=== PATIENT | female | born 1980 | race African-American/Black ===

== ENCOUNTER 2016-10-03 07:15 | Day surgery (SDC) | payer OTHER ==
[2016-09-30 17:00] VITALS: BMI 24.7
--- NOTE | 2016-10-03 10:43 | HP ---
History & Physical Update - History History: No Change - Physical Physical: No Change - Assessment Assessment: No Change - Plan Plan: No Change (submucosal leiomyoma, heavy menstrual bleeding for hysteroscopic myomectomy, D&C and IUD insertion)
[2016-10-03] MEDS ORDERED: LACTATED RINGERS SOLUTION 1,000 ML IV SCH (10:45)
[2016-10-03] MEDS ORDERED: ACETAMINOPHEN 325 MG TABLET (FP) PO PRN (10:45)
[2016-10-03] MEDS ORDERED: IBUPROFEN 800 MG/8 ML IJ IVPB PRN (10:45)
[2016-10-03] MEDS ORDERED: LIDOCAINE HCL 2% (20ML MULTI-DOSE VIAL) NR ONE (11:34)
[2016-10-03] MEDS ORDERED: MIDAZOLAM HCL 2 MG/2 ML SINGLE DOSE VIAL ONE (11:34)
[2016-10-03] MEDS ORDERED: PROPOFOL 20 ML ONE (11:34)
[2016-10-03] MEDS ORDERED: DEXAMETHASONE SOD PHOSPHATE 4 MG/1 ML VIAL ONE (11:58)
[2016-10-03] MEDS ORDERED: KETOROLAC TROMETHAMINE 30 MG/1 ML VIAL ONE (12:19)
--- NOTE | 2016-10-03 12:31 | OP ---
Operative Note - Note: Operative Date: 10/03/16 (dictation number [id number]) Pre-Operative Diagnosis: submucosal leiomyoma, heavy menstrual bleeding Operation: hysteroscopic myomectomy, D&C, IUD insertion Findings: large posterior submucosal leiomyoma Implants: Mirena IUD Post-Operative Diagnosis: Same as Pre-op Surgeon: Ayana Banks Anesthesiologist/SCHOOL PHOTOGRAPHS DETAILER: Francoise Miller Anesthesia: General Specimens Removed: portions of leiomyoma Estimated Blood Loss (mls): 25 Drains, Volume Out (mls): 1,200 (saline deficit) Operative Report Dictated: Yes
[2016-10-03] MEDS ORDERED: ONDANSETRON 4 MG/2 ML VIAL IVPUSH PRN (12:37)
[2016-10-03] MEDS ORDERED: oxyCODONE HCL 5 MG TABLET PO PRN (12:37)
[2016-10-03 13:42] VITALS: TEMP 98.9
--- NOTE | 2016-10-03 14:25 | OP ---
DATE OF OPERATION: 10/03/2016 PREOPERATIVE DIAGNOSIS: 1. Submucosal leiomyoma. 2. Heavy menstrual bleeding. POSTOPERATIVE DIAGNOSIS: 1. Submucosal leiomyoma. 2. Heavy menstrual bleeding. PROCEDURE PERFORMED: Hysteroscopy, hysteroscopic resection of posterior uterine myoma and insertion of Mirena intrauterine device. SURGEON: Ayana Banks DO WEAPONS AND TACTICS INSTRUCTOR: None needed. ANESTHESIA: General. ANESTHESIOLOGIST: COMPLICATIONS: None. ESTIMATED BLOOD LOSS: 25 mL. SPECIMENS REMOVED: Included portions of submucosal leiomyoma. FLUID DEFICIT: 1200 mL of normal saline. SPONGE, NEEDLE AND INSTRUMENT COUNTS: Correct at the end of the procedure. DISPOSITION: Stable to PACU. BRIEF HISTORY AND PROCEDURE: The patient is a 36-year-old female who had been seen in the office with complaints of heavy menstrual bleeding and upon ultrasound examination was found to have a large submucosal leiomyoma. The patient desired a Mirena IUD however, due to the size of the fibroid it was discussed with the patient that possible removal of the myoma prior to IUD insertion would be ideal. The patient agreed and consented to the procedure for hysteroscopic resection of fibroid and IUD insertion. The patient was admitted to [facility] on October 03, 2016. Consent for the procedure was confirmed. The patient was taken to the operating room. She was placed in the dorsal lithotomy position and given general anesthesia. Cervix was dilated to accommodate an operative hysteroscope which was placed up to the uterine fundus. A large posterior submucosal leiomyoma was appreciated and resected in several passes with the resectoscope device. Suction D and C was performed to remove all the uterine contents. Another look with the hysteroscope revealed approximately 50% of the myoma still intact. Several more passes with the resectoscope were completed until approximately 1200 mL of fluid deficit was noted. One final suction D and C was performed to remove all the uterine contents. Next, the Mirena IUD was inserted in the usual fashion without difficulty. All instruments were removed from the vagina. The patient was awoken from anesthesia and recovering in stable condition in the PACU at the time of this dictation. AYANA BANKS DO /[id number]
[2016-10-03 15:06] VITALS: BP 115/66; PULSE 55
--- NOTE | 2016-10-04 13:35 | PATH ---
Surgical Pathology Report Patient Name: TAMERA MNUOZ [facility]. Rec. #: [id number] /Age/Gender: 1980 (Age: 36) / F Account: [id number] Location: [facility] SURGICAL Taken: 10/03/2016 Received: 10/03/2016 Reported: 10/04/2016 Physicians: Ayana Banks M.D. Specimen(s) Received SUBMUCOSAL FIBROID Clinical History Endometrial polyp Final Diagnosis UTERUS, HYSTEROSCOPIC MYOMECTOMY: PORTIONS OF MYOMETRIAL TISSUE CONSISTENT WITH FIBROID, ALONG WITH ENDOMETRIUM WITH AREAS SUGGESTIVE OF BENIGN ENDOMETRIAL POLYP AND CLOTTED BLOOD. Electronically Signed Rafa Alcaraz M.D. Gross Description Received in formalin labeled "submucosal fibroid," is a 6 g, 5.0 x 4.0 x 0.7 cm aggregate of multiple chun, irregular, firm to rubbery portions of tissue, consistent with morcellated fibroid. Also received within the same container is a 4.0 x 3.5 x 0.7 cm aggregate of chun-red soft tissue fragments admixed with blood clot. The specimen is entirely submitted in 8 cassettes as follows: 5-5-rqevpydoxls fibroid; 0-8-uebesrgr soft tissue fragments. /10/03/2016 saudi10/03/2016
== END 2016-10-03 15:05 | disposition home or self-care (01) ==
LOC: JASU-SURG 07:15
PROVIDERS: ATTEND Obstetrics & Gynecology
PROC: 0UB98ZZ Excision of Uterus, Via Natural or Artificial Opening Endoscopic (ICD-10-PCS; principal; 2016-10-03 10:30)
PROC: 0UH98HZ Insertion of Contraceptive Device into Uterus, Via Natural or Artificial Opening Endoscopic (ICD-10-PCS; 2016-10-03 10:30)
DX: D25.0 Submucous leiomyoma of uterus (principal); N93.8 Other specified abnormal uterine and vaginal bleeding
CPT/HCPCS: 88305-TC; 94760

== ENCOUNTER 2018-11-24 08:00 | Inpatient (IN) | payer OTHER ==
[2018-11-25 07:32] VITALS: BMI 26.2
[2018-11-26] MEDS ORDERED: IBUPROFEN 800 MG/8 ML IJ IVPB PRN (08:33)
[2018-11-26] MEDS ORDERED: ONDANSETRON 4 MG/2 ML VIAL IVPUSH PRN ×3 (08:33→11:32)
[2018-11-26] MEDS ORDERED: BISACODYL 5 MG TABLET.DR (FP) PO PRN (08:33)
[2018-11-26] MEDS ORDERED: SIMETHICONE 80 MG TAB.CHEW (FP) PO PRN (08:33)
[2018-11-26] MEDS ORDERED: DOCUSATE SODIUM 100 MG CAPSULE (FP) PO PRN (08:33)
--- NOTE | 2018-11-26 08:33 | HP ---
History & Physical Update - History History: No Change - Physical Physical: No Change - Assessment Assessment: No Change - Plan Plan: No Change (No change in HP)
[2018-11-26] MEDS ORDERED: fentaNYL CITRATE 250 MCG/5 ML VIAL ONE (08:44)
[2018-11-26] MEDS ORDERED: MIDAZOLAM HCL 2 MG/2 ML SINGLE DOSE VIAL ONE ×2 (08:44)
[2018-11-26] MEDS ORDERED: PROPOFOL 20 ML ONE (08:44)
[2018-11-26] MEDS ORDERED: ROCURONIUM BROMIDE 50 MG/5 ML SYRINGE ONE (08:44)
[2018-11-26] MEDS ORDERED: LACTATED RINGERS SOLUTION 1,000 ML/1,000 ML INFUS.BAG IV SCH (08:45)
[2018-11-26] MEDS ORDERED: VASOPRESSIN 20 UNITS/ML VIAL IV ONE (08:58)
[2018-11-26] MEDS ORDERED: ceFAZolin SODIUM 1 GM VIAL IVPB ONE (09:20)
[2018-11-26] MEDS ORDERED: ceFAZolin SODIUM 1 GM VIAL ONE ×2 (11:07→17:48)
[2018-11-26] MEDS ORDERED: KETOROLAC TROMETHAMINE 30 MG/1 ML VIAL ONE (11:07)
[2018-11-26] MEDS ORDERED: LIDOCAINE HCL/PF 2% SDV 5ML VIAL ONE (11:07)
[2018-11-26] MEDS ORDERED: DEXAMETHASONE SOD PHOSPHATE 4 MG/1 ML VIAL ONE (11:07)
[2018-11-26] MEDS ORDERED: HYDROmorphone *PCA* 10MG/50ML DISP.SYRIN ONE (11:32)
[2018-11-26] MEDS ORDERED: PROMETHAZINE HCL 25 MG/1 ML VIAL IVPB PRN (11:32)
[2018-11-26] MEDS ORDERED: DEXAMETHASONE SOD PHOSPHATE 4 MG/1 ML VIAL IVPUSH PRN (11:32)
[2018-11-26] MEDS ORDERED: HYDROmorphone *PCA* 10MG/50ML DISP.SYRIN PCA SCH (11:45)
--- NOTE | 2018-11-26 11:53 | OP ---
Operative Note - Note: Operative Date: 11/26/18 Pre-Operative Diagnosis: Embedded intrauterine device, submucosal myoma, leiomyomatous uterus Operation: Open abdominal myomectomy and interuterine device removal abdominally Findings: as dictated Post-Operative Diagnosis: Other (adenomyosis) Surgeon: Seema De León Corn Sheller: Ophelia Lakhani Anesthesiologist/LINING MARKER: Leatha Cole MD Anesthesia: General Specimens Removed: Leiomyoma, IUD Estimated Blood Loss (mls): 50 (ml) Drains, Volume Out (mls): 250 (ML yellow urine) Fluid Volume Replaced (mls): 1,300 (ml LR) Operative Report Dictated: Yes
--- NOTE | 2018-11-26 11:54 | SURG ---
Surgery Enamel Machine Operator Note Enamel Machine Operator: Ophelia Lakhani PA-C (Suzy) Date of Service: 11/26/18 Diagnosis: Embedded intrauterine device, submucosal myoma, leiomyomatous uterus Procedure: Open abdominal myomectomy and interuterine device removal abdominally I was present for the entirety of the operative procedure. For further detail, please refer to operative report. Visit type - Case Type Case Type: Scheduled - Emergency Emergency Visit: No - New patient This patient is new to me today: Yes Date on this admission: 12/01/18 - Critical Care Critical Care patient: No
[2018-11-26] MEDS: LACTATED RINGERS SOLUTION 1,000 ML IV SCH ×2 (13:50→23:19)
--- NOTE | 2018-11-26 15:24 | OP ---
DATE OF OPERATION: 11/26/2018 PREOPERATIVE DIAGNOSIS: Embedded intrauterine device, submucosal myoma, leiomyomatous uterus. POSTOPERATIVE DIAGNOSIS: Adenomyosis. OPERATION: Hysteroscopic lysis of adhesions and abdominal myomectomy and intrauterine device removal abdominally. SURGEON: Alin De León MD TOWER DRAGLINE OPERATOR: CINDA Hicks ANESTHESIA: General. ANESTHESIOLOGIST: Leatha Cole MD FINDINGS: Numerous adhesions in the endometrium. Lysis of adhesions performed. IUD located in the muscle of the uterus. DESCRIPTION OF PROCEDURE: Patient was taken to the operating room, placed in dorsal lithotomy position, prepped and draped in the usual sterile fashion. Timeout was performed in accordance with hospital regulations. Speculum was placed in the vagina, anterior lip of the cervix grasped with single-tooth tenaculum. Cervix was then dilated up to accommodate the operative hysteroscope. Numerous adhesions were seen, and blood. Lysis of adhesions was done. String was seen and attempted to remove the IUD; however, was unable to remove IUD hysteroscopically. Procedure was then aborted hysteroscopically, and attention was then drawn to the abdomen where a Pfannenstiel skin incision was made with a scalpel. Cautery was then used to go through the layers of the abdominal wall to the level of the fascia. Fascia was cut in the midline. Cautery was then used to open the fascia in smiling fashion. Peritoneal cavity was then entered and carried upward and downward. Uterus was exteriorized. A posterior myoma was noted approximately 7 cm in size. Pitressin was infiltrated in the serosa. Cautery was then used to enter the serosa into the muscle. As soon as muscle was entered, IUD was seen coming out of the muscle. IUD was then removed and submitted to pathology. Cautery was then used to go down through layers of the uterus down to the level of the myoma. Submucosal myoma was seen and removed. Endometrial cavity was repaired using 2-0 Vicryl suture and continuous locking suture using 0 Vicryl suture on the muscle layer and V-Loc suture on the serosa. An anterior myoma was noted on the left side. A vertical incision was made and tissue was mostly noted to be adenomyosis. Myoma was then removed and submitted to pathology. Incision was then closed using layers using 0 Vicryl suture in the muscle and V-Loc suture on the serosa. Hemostasis was achieved. Interceed was then placed and sewn in. Uterus interiorized. Packing was removed. Tubes and ovaries noted to be normal. Abdominal sweep done. Peritoneal cavity was closed using 0 Vicryl suture in a continuous fashion. Muscle was approximated in the midline using 0 Vicryl suture. Fascia was then closed using 0 Vicryl suture in 2 parts continuous. Interrupted on the subcutaneous was done using 2-0 Vicryl suture, and skin was then closed using 3-0 Vicryl ALIN DE LEÓN M.D. [id number]
[2018-11-26] MEDS ORDERED: DEXTROSE 5%-WATER - 50 ML IVPB ONE (17:48)
[2018-11-26] MEDS: CEFAZOLIN 1 GM in DEXTROSE 5%-WATER - 50 ML IVPB SCH ×2 (17:54→17:58)
[2018-11-26 20:52] LABS: HEMATOCRIT 22.2 % (32.4-45.2); MCHC 28.8 g/dl (32.0-36.0); MEAN CELL VOLUME 63.6 fl (80-96); MEAN PLT VOLUME 7.5 fl (7.5-11.1); PLATELET COUNT 518 K/MM3 (134-434); RDW 21.7 % (11.6-15.6); WHITE BLOOD COUNT 16.6 K/mm3 (4.0-10.0)
[2018-11-26 20:55] LABS: MCH 18.3 pg (25.7-33.7)
[2018-11-26 20:56] LABS: HEMOGLOBIN 6.4 GM/dL (10.7-15.3)
[2018-11-26 21:08] LABS: CALCIUM 8.1 mg/dL (8.5-10.1); CREATININE 0.5 mg/dL (0.55-1.3)
[2018-11-27] MEDS ORDERED: ceFAZolin SODIUM 1 GM VIAL ONE ×3 (02:29→17:17)
[2018-11-27] MEDS ORDERED: DEXTROSE 5%-WATER - 50 ML IVPB ONE ×3 (02:29→17:17)
[2018-11-27] MEDS: CEFAZOLIN 1 GM in DEXTROSE 5%-WATER - 50 ML IVPB SCH ×3 (02:37→17:58)
[2018-11-27 08:05] LABS: HEMATOCRIT 24.5 % (32.4-45.2); HEMOGLOBIN 7.3 GM/dL (10.7-15.3); MCHC 29.8 g/dl (32.0-36.0); MEAN CELL VOLUME 66.8 fl (80-96); MEAN PLT VOLUME 7.4 fl (7.5-11.1); PLATELET COUNT 438 K/MM3 (134-434); RBC 3.66 M/mm3 (3.60-5.2); RDW 25.6 % (11.6-15.6); WHITE BLOOD COUNT 15.4 K/mm3 (4.0-10.0)
[2018-11-27 08:22] LABS: MCH 19.9 pg (25.7-33.7)
[2018-11-27] MEDS ORDERED: oxyCODONE HCL 5 MG TABLET PO PRN (08:33)
[2018-11-27 08:43] LABS: CALCIUM 8.1 mg/dL (8.5-10.1); CREATININE 0.4 mg/dL (0.55-1.3); POTASSIUM 3.7 mmol/L (3.5-5.1)
[2018-11-27] MEDS: ENOXAPARIN NA (PORCINE) 40 MG/0.4 ML DISP.SYRIN SQ SCH (09:36)
--- NOTE | 2018-11-27 09:38 | PN ---
Progress Note (short form) - Note Progress Note: POD #1 s/p Open abdominal myomectomy, removal of IUD. H/o anemia No acute events per RN notes. Alert. Hasn't been OOB yet. Cadet cath being removed as I started to examine patient. Tolerating soft diet. Pain management via RN INFUSION. Denies n/v/f/c, CP, SOB, VILLASENOR. Last Vital Signs Temp Pulse Resp BP Pulse Ox 98.2 F 62 20 105/62 79 L 11/27/18 06:01 11/27/18 06:01 11/27/18 06:01 11/27/18 06:01 11/27/18 05:55 CBC, BMP 11/27/18 07:05 11/27/18 07:05 Gen: nad ABD: surgical dressing c/d/i. LE: soft. supple. nt bilat. SCDs replaced Problem List - Problems (1) Leiomyofibroma Assessment/Plan: POD #1 s/p Open ABD myomectomy and removal of IUD. Patient has a h/o anemia which explains the H/H. Inraop blood loss only 50mL. DC cadet and begin trial of void DC RN INFUSION at 12pm today and start PO pain mangement: Oxycodone 5 mg po q4h prn pain (ordered) Tordol 30mg IVP Q8H prn Incentive spirometer OOB and ambulate Regular diet DC planning 11/28/18 Above plan discussed with my attending and agrees. Code(s): D21.9 - BENIGN NEOPLASM OF CONNECTIVE AND OTHER SOFT TISSUE, UNSP (2) Anemia Code(s): D64.9 - ANEMIA, UNSPECIFIED
[2018-11-27] MEDS: LACTATED RINGERS SOLUTION 1,000 ML IV SCH (10:49)
[2018-11-27] MEDS: FERROUS SO4 325 MG TABLET (FP) PO SCH (10:49)
--- NOTE | 2018-11-27 14:24 | PN ---
Progress Note (short form) - Note Progress Note: Anesthesia POD#1 S/P Abdominal Myomectomy and removal of IUD under GA and SAUSAGE MACHINE OPERATOR VSS,H/H droped,had blood transfusion,no vomiting,some nausea is still there. Food is advanced,pain is better with SAUSAGE MACHINE OPERATOR. A/P Continue the SAUSAGE MACHINE OPERATOR for today. Francoise Miller MD.
[2018-11-27] MEDS: oxyCODONE HCL 5 MG TABLET PO PRN ×2 (18:55→23:55)
[2018-11-27] MEDS: ACETAMINOPHEN 325 MG TABLET (FP) PO PRN (21:09)
[2018-11-28] MEDS ORDERED: ceFAZolin SODIUM 1 GM VIAL ONE ×3 (01:31→16:17)
[2018-11-28] MEDS ORDERED: DEXTROSE 5%-WATER - 50 ML IVPB ONE ×3 (01:31→16:17)
[2018-11-28] MEDS: CEFAZOLIN 1 GM in DEXTROSE 5%-WATER - 50 ML IVPB SCH ×3 (01:48→17:28)
[2018-11-28] MEDS: oxyCODONE HCL 5 MG TABLET PO PRN (05:52)
--- NOTE | 2018-11-28 08:36 | PN ---
Progress Note (SOAP) - Subjective Chief Complaint: Pt doing well no flatus yet desires to go home - Current Medications Current Medications: Active Medications Acetaminophen (Tylenol -) 650 mg PO Q4H PRN PRN Reason: FEVER Last Admin: 11/27/18 21:09 Dose: 650 mg Bisacodyl (Dulcolax -) 10 mg PO ONCE PRN PRN Reason: CONSTIPATION Dexamethasone Sodium Phosphate (Decadron Injection -) 4 mg IVPUSH ONCE PRN PRN Reason: NAUSEA AND/OR VOMITING Diphenhydramine HCl (Benadryl Injection -) 12.5 mg IVPUSH ONCE PRN PRN Reason: FOR ITCHING Docusate Sodium (Colace -) 100 mg PO TID PRN PRN Reason: CONSTIPATION Enoxaparin Sodium (Lovenox -) 40 mg SQ DAILY [facility] Last Admin: 11/27/18 09:36 Dose: 40 mg Ferrous Sulfate (Feosol -) 325 mg PO DAILY [facility] Last Admin: 11/27/18 10:49 Dose: 325 mg Lactated Ringer's (Lactated Ringers Solution) 1,000 mls @ 125 mls/hr IV ASDIR [facility] Last Admin: 11/27/18 10:49 Dose: 125 mls/hr Cefazolin Sodium 1 gm/ (Dextrose) 50 mls @ 100 mls/hr IVPB Q8H-IV ALBERTO Last Admin: 11/28/18 01:48 Dose: 100 mls/hr Ibuprofen (Caldolor Injection -) 800 mg IVPB Q8H PRN PRN Reason: PAIN LEVEL 1-5 Ondansetron HCl (Zofran Injection) 4 mg IVPUSH Q6H PRN PRN Reason: NAUSEA AND/OR VOMITING Last Admin: 11/26/18 22:21 Dose: 4 mg Ondansetron HCl (Zofran Injection) 4 mg IVPUSH Q4H PRN PRN Reason: NAUSEA AND/OR VOMITING Last Admin: 11/27/18 14:29 Dose: 4 mg Oxycodone HCl (Roxicodone -) 5 mg PO Q4H PRN PRN Reason: PAIN LEVEL 1-5 Oxycodone HCl (Roxicodone -) 10 mg PO Q4H PRN PRN Reason: PAIN LEVEL 6-10 Last Admin: 11/28/18 05:52 Dose: 10 mg Promethazine HCl (Phenergan Injection -) 12.5 mg IVPB Q6H PRN PRN Reason: NAUSEA AND/OR VOMITING Simethicone (Mylicon -) 80 mg PO Q4H PRN PRN Reason: GAS Last Admin: 11/27/18 13:44 Dose: 80 mg - Objective Vital Signs: Vital Signs Temperature 98.2 F 11/27/18 06:01 Pulse Rate 62 11/27/18 06:01 Respiratory Rate 20 11/27/18 09:00 Blood Pressure 105/62 11/27/18 06:01 O2 Sat by Pulse Oximetry (%) 98 11/27/18 09:00 Constitutional: Yes: Well Nourished, No Distress Cardiovascular: Yes: WNL Respiratory: Yes: WNL Gastrointestinal: Yes: WNL, Soft ...Rectal Exam: Yes: WNL Genitourinary: Yes: WNL ....Post : Yes: Uterus firm, Uterus non-tender Breast(s): Yes: WNL Musculoskeletal: Yes: WNL Extremities: Yes: WNL Edema: No Wound/Incision: Yes: Clean/Dry, Steri Strips, Open to air Neurological: Yes: WNL, Alert, Oriented Labs Lab Results: CBC, BMP 11/27/18 07:05 11/27/18 07:05 Assessment/Plan POD2 Stable sp myomectomy anemia Plan DC home if passing flatus and anemia stable ck cbc iron daily
[2018-11-28] MEDS: FERROUS SO4 325 MG TABLET (FP) PO SCH (09:09)
[2018-11-28] MEDS: ENOXAPARIN NA (PORCINE) 40 MG/0.4 ML DISP.SYRIN SQ SCH (09:09)
[2018-11-28 10:09] LABS: BASO % 0.7 % (0-2.0); EOS % 0.7 % (0-4.5); HEMATOCRIT 23.6 % (32.4-45.2); HEMOGLOBIN 7.1 GM/dL (10.7-15.3); LYMPH % 9.7 % (8-40); MEAN PLT VOLUME 7.4 fl (7.5-11.1); MONO % 5.2 % (3.8-10.2); NEUT % 83.7 % (42.8-82.8); PLATELET COUNT 478 K/MM3 (134-434); RBC 3.58 M/mm3 (3.60-5.2); RDW 25.1 % (11.6-15.6)
[2018-11-28 10:14] LABS: MCH 19.8 pg (25.7-33.7)
[2018-11-28] MEDS: ACETAMINOPHEN 325 MG TABLET (FP) PO PRN (12:41)
[2018-11-28 12:51] LABS: ANISOCYTOSIS 2+; MACROCYTOSIS 0; OVALOCYTE 1+; PLATELET ESTIMATE NORMAL
[2018-11-28] MEDS: LACTATED RINGERS SOLUTION 1,000 ML IV SCH (15:13)
[2018-11-28 15:21] VITALS: BP 112/63; PULSE 69; TEMP 98.4
[2018-11-28] MEDS ORDERED: SIMETHICONE 80 MG TAB.CHEW (FP) PO PRN (16:14)
[2018-11-28] MEDS ORDERED: BISACODYL 10 MG SUPP.RECT RC ONE (16:15)
--- NOTE | 2018-12-02 15:49 | PATH ---
Surgical Pathology Report Patient Name: TAMERA MUNOZ [facility]. Rec. #: [id number] /Age/Gender: 1980 (Age: 38) / F Account: [id number] Location: [address] [place] [address] Taken: 11/26/2018 Received: 11/26/2018 Reported: 12/02/2018 Physicians: Seema De León M.D. Specimen(s) Received A: FIBROID B: IUD Clinical History Leiomyoma of uterus, IUD Final Diagnosis A. FIBROID, ABDOMINAL, MYOMECTOMY: LEIOMYOMA (WEIGHT: 52 G). B. IUD, REMOVAL: IUD, DESCRIBED (GROSS EXAMINATION ONLY). Electronically Signed Alise Abraham M.D. Gross Description A. Received in formalin, labeled "fibroid", is a chun nodular mass measuring 6 x 5.1 x 5 cm and weighing 52 g. Serial sections reveal chun rubbery surfaces with whorled architecture. No hemorrhage or necrosis is seen. Copy Manager sections submitted in 5 cassettes. B. Received in a container, labeled "IUD" consists of consists of a white intrauterine device with attached strings. Gross examination only.
--- NOTE | 2018-12-03 08:45 | DS ---
Physical Exam-DEALER ACCOUNT MANAGER Vital Signs: Vital Signs Temperature 98.4 F 11/28/18 15:20 Pulse Rate 69 11/28/18 15:20 Respiratory Rate 20 11/28/18 15:20 Blood Pressure 112/63 11/28/18 15:20 O2 Sat by Pulse Oximetry (%) 97 11/28/18 09:00 Constitutional: Yes: Well Nourished, No Distress Neck: Yes: WNL Cardiovascular: Yes: WNL Respiratory: Yes: WNL Labs: CBC, BMP 11/28/18 09:32 11/27/18 07:05 Discharge Summary Reason For Visit: LEIOMYOMA OF UTERUS Leiomyomatous Uterus Procedures: Principal: Abdominal myomectomy Condition: Stable - Instructions Diet, Activity, Other Instructions: Dr. Seema De León Explosive Technician discharge instructions Physical activity Resume your normal everyday activity as tolerated no heavy lifting or exercise until seen by your surgeon. You may walk unlimited ele of and climb stairs. You may resume driving the car when you feel safe and comfortable behind the wheel and are no longer taking narcotic pain medications. No sexual activity as instructed by Dr. De León. Wound care If you have a bandage, leave it on, and keep dry for 48-72 hours. After that time discard the outer bandage. If they are tapes on the skin under the out of bandage leave them in place. They will peel off in the next 7 to 10 days. Do Not Peel them off. You may shower the day after surgery. If there are tapes present on the skin, you may shower over them. Diet There are no dietary restrictions. Eat healthy, high-fiber foods. Drink 6 to 8 glasses of liquid each day. This will assist in keeping your bowels are regular. Pain management You may take Tylenol or acetaminophen or Ibuprofen (for example, Motrin, Advil etc.) from my pain prescription medication is ordered should be taken as prescribed for moderate to severe pain. Do not drive, drink alcohol or operate heavy machinery while taking narcotic pain medications. Call Dr. De León for any of the following: Severe pain not relieved by medication Fever of 101 or higher Excessive bleeding or drainage on dressing Inability to urinate ISTOP: [phone] Call the office at [phone] for an appointment in seven days. Disposition: HOME - Home Medications Comprehensive Discharge Medication List: Ambulatory Orders Docusate Sodium [Colace -] 100 mg PO BID #14 capsule 11/26/18 oxyCODONE HCL [Roxicodone -] 5 mg PO Q6H PRN 7 Days #28 tablet MDD 5 11/26/18 Ferrous Sulfate [Feosol] 325 mg PO BID #60 tablet 11/28/18
== END 2018-11-28 19:39 | disposition home or self-care (01) | DRG 743 ==
LOC: JSAMEDAYSX 11-26 07:31 → J6S 11-26 14:29
PROVIDERS: ADMIT Obstetrics & Gynecology; ATTEND Obstetrics & Gynecology
PROC: 0UB90ZZ Excision of Uterus, Open Approach (ICD-10-PCS; principal; 2018-11-26 09:00)
PROC: 0DNW0ZZ Release Peritoneum, Open Approach (ICD-10-PCS; 2018-11-26 09:00)
PROC: 0UPD0HZ Removal of Contraceptive Device from Uterus and Cervix, Open Approach (ICD-10-PCS; 2018-11-26 09:00)
DX: N80.0 Endometriosis of uterus (principal); D25.9 Leiomyoma of uterus, unspecified; D64.9 Anemia, unspecified; N73.6 Female pelvic peritoneal adhesions (postinfective); Z30.432 Encounter for removal of intrauterine contraceptive device; Z53.31 Laparoscopic surgical procedure converted to open procedure
CPT/HCPCS: 36415; 36430; 36511; 80048; 84703; 85025; 85027; 86850; 86900; 86901; 86922; 88300-TC; 88305-TC; 94010; 94760; P9038; P9058